=== PATIENT | female | born 1980 | race Hispanic/Latino ===

== ENCOUNTER 2020-11-30 10:36 | Outpatient (CLI) | payer OTHER | END 2020-11-30 10:37 | disposition home or self-care (01) | LOC: CSHRAD 10:36 | PROVIDERS: ATTEND Family Medicine | DX: R59.0 Localized enlarged lymph nodes (principal); Z80.3 Family history of malignant neoplasm of breast | CPT/HCPCS: 71046 ==

== ENCOUNTER 2024-08-26 10:40 | Outpatient (CLI) | payer OTHER | END 2024-08-26 10:41 | disposition home or self-care (01) | LOC: CSHRAD 10:40 | PROVIDERS: ATTEND Family Medicine | DX: S09.92XA Unspecified injury of nose, initial encounter (principal) | CPT/HCPCS: 70160 ==